=== PATIENT | male | born 1995 | race Caucasian/White ===

== ENCOUNTER 2018-05-09 03:51 | Emergency (ER) | payer OTHER ==
--- NOTE | 2018-05-09 03:54 | ER Report ---
History and Physical Time Seen By MD: 03:54 HPI/ROS CHIEF COMPLAINT: Right hand laceration HISTORY OF PRESENT ILLNESS: 22-year-old male presents ambulatory to the ER escorted by friends. He appears intoxicated. He sustained a laceration to his right index finger knuckle the MCP secondary to having a beer bottle smashed on his hand. Patient chose intact. Distal tendon function. There is a approximately 2.5 cm laceration across the knuckle. Patient states his last tetanus shots up-to-date. Allergies: Coded Allergies: No Known Drug Allergies (Unverified , 05/09/18) Home Meds No Active Prescriptions or Reported Meds Reviewed Nurses Notes: Yes Old Medical Records Reviewed: Yes Constitutional Vital Sign - Last 24 Hours 05/09/18 03:55 Temp 97.5 Pulse 70 Resp 16 B/P (MAP) 115/87 Pulse Ox 98 O2 Delivery Room Air Physical Exam General appearance: Alert no distress. Respiratory: Chest is non tender, lungs are clear to auscultation. Cardiac: Regular rate and rhythm Extremities: Examination of the right hand reveals a neurovascularly intact right hand. Transversely across the MCP knuckle is a 2.5, 70 laceration that gaps open approximately 5-6 mm. It is grossly crusted with blood. DIFFERENTIAL DIAGNOSIS: After history and physical exam differential diagnosis was considered for head laceration, joint penetration, tendon laceration, nerve laceration, foreign body Medical Decision Making ED Course/Re-evaluation ED Course Patient was admitted to an examination room. H&P was done. The differential diagnoses was considered. On conical examination. Patient has a significant laceration to his right MCP knuckle at the base of the index finger. Wound was repaired as noted below. Wound care was discussed. Patient advised to watch for signs of infection. He is to perform daily wound care. Suture removal. We 14 days. Procedure: Laceration repair. Verbal consent was obtained from the patient. The 2.5 cm Laceration on the right index finger MCP knuckle was anesthetized in the usual fashion. The wound was scrubbed, draped and explored to its base with a gloved finger.. There were some laceration of the muscle. There did not appear to be joint penetration. There was no tendon laceration noted No tendon injury was identified. The wound was repaired with 5-0 Prolene 7 sutures. The wound repair was simple. The procedure was performed by myself. Wound care was discussed. Patient is advised to wear a finger splint to keep his finger in extension for 5 days. Suture removal will be in 14 days. Since this is over the knuckle. Decision to Disposition Date: May 09, 2018 Decision to Disposition Time: 04:23 Depart Departure Latest Vital Signs Vital Signs Date Time Temp Pulse Resp B/P (MAP) Pulse Ox O2 Delivery O2 Flow Rate FiO2 05/09/18 03:55 97.5 70 16 115/87 98 Room Air Impression: Primary Impression: Laceration of right hand Additional Impression: Alcohol intoxication Condition: Improved Disposition: HOME OR SELF-CARE New Scripts No Active Prescriptions or Reported Meds Patient Instructions: Hand Laceration Additional Instructions: Perform daily wound care, gently cleanse it with a mild soap such as baby shampoo blot dry and apply a thin layer of ointment and a large Band-Aid Keep finger straight was splint for at least 5 days Have your stitches removed in 14 days Take ibuprofen as needed for pain relief Problem Qualifiers Primary Impression: Laceration of right hand Encounter type: initial encounter Foreign body presence: without foreign body Qualified Codes: S61.411A - Laceration without foreign body of right hand, initial encounter Additional Impression: Alcohol intoxication Complication of substance-induced condition: uncomplicated Qualified Codes: F10.920 - Alcohol use, unspecified with intoxication, uncomplicated CLAYTON VELASQUEZ DO May 09, 2018 03:54
[2018-05-09 03:55] VITALS: BP 115/87
== END 2018-05-09 04:33 | disposition home or self-care (01) ==
LOC: ER 04:07
DX: S61.411A Laceration without foreign body of right hand, initial encounter (principal)
CPT/HCPCS: 99282